=== PATIENT | female | born 1970 | race Caucasian/White ===

== ENCOUNTER 2024-03-19 18:41 | Emergency (ER) | payer OTHER ==
[2024-03-19 18:50] VITALS: BMI 24.3
[2024-03-19] MEDS ORDERED: ACETAMINOPHEN INJECTION 100 ML IVPB ONE (20:03)
[2024-03-19] MEDS ORDERED: ONDANSETRON 4 MG/2 ML VIAL ONE (20:03)
[2024-03-19] MEDS: ACETAMINOPHEN 1000 MG/100 ML BAG IVPB ONE (20:27)
[2024-03-19] MEDS: LACTATED RINGERS SOLUTION 1000 ML INFUS.BAG IV ONE (20:27)
[2024-03-19] MEDS: ONDANSETRON 4 MG/2 ML VIAL IVPUSH ONE (20:27)
[2024-03-19 20:59] LABS: BASO % 0.1 % (0-2.0); EOS % 0.3 % (0-4.5); HEMATOCRIT 38.9 % (32.4-45.2); HEMOGLOBIN 13.3 GM/dL (10.7-15.3); LYMPH % 10.4 % (8-40); MCH 30.2 pg (25.7-33.7); MCHC 34.1 g/dl (32.0-36.0); MEAN CELL VOLUME 88.7 fl (80-96); MEAN PLT VOLUME 6.9 fl (7.5-11.1); MONO % 7.1 % (3.8-10.2); NEUT % 82.1 % (42.8-82.8); PLATELET COUNT 207 10^3/uL (134-434); RBC 4.39 M/mm3 (3.60-5.2); RDW 14.5 % (11.6-15.6); WHITE BLOOD COUNT 5.1 K/mm3 (4.0-10.0)
[2024-03-19 21:20] LABS: POTASSIUM 4.2 mmol/L (3.5-5.1)
[2024-03-19 21:22] LABS: ALBUMIN 4.1 g/dl (3.4-5.0); BLOOD UREA NITROGEN 19.5 mg/dL (7-18); CALCIUM 9.4 mg/dL (8.5-10.1); MAGNESIUM 1.7 mg/dL (1.8-2.4)
[2024-03-19 21:25] LABS: CREATININE 1.1 mg/dL (0.55-1.3)
[2024-03-19 21:27] LABS: BILIRUBIN,TOTAL 0.3 mg/dL (0.2-1)
[2024-03-19] MEDS ORDERED: KETOROLAC TROMETHAMINE 15 MG/ML VIAL ONE (21:32)
[2024-03-19] MEDS ORDERED: MAGNESIUM SULFATE IN WATER 2 GM/50 ML IVPB IVPB ONE (21:33)
[2024-03-19] MEDS: MAGNESIUM SULFATE IN WATER 2 GM/50 ML IVPB IVPB ONE (21:41)
[2024-03-19] MEDS: KETOROLAC TROMETHAMINE 15 MG/ML VIAL IVPUSH ONE (21:41)
[2024-03-19] MEDS ORDERED: METOCLOPRAMIDE HCL INJECTION 10 MG/2 ML VIAL ONE (22:30)
[2024-03-19] MEDS: METOCLOPRAMIDE HCL INJECTION 10 MG/2 ML VIAL IVPB ONE (22:34)
[2024-03-19 22:43] LABS: EPI CELLS 5 /uL (0-25.1); HYALINE CASTS 0 /uL (0-3.1); PH,URINE 5.5 (5.0-8.0); URINE APPEARANCE CLEAR; URINE BACTERIA 27 /uL (0-1359); URINE BILIRUBIN NEGATIVE (NEGATIVE); URINE COLOR YELLOW; URINE GLUCOSE (UA) NEGATIVE (NEGATIVE); URINE KETONE NEGATIVE (NEGATIVE); URINE LEUK ESTERASE NEGATIVE (NEGATIVE); URINE NITRITE NEGATIVE (NEGATIVE); URINE PROTEIN NEGATIVE (NEGATIVE); URINE RBC 6 /uL (0-23.9); URINE UROBILINOGEN 0.2 mg/dL (0.2-1.0); URINE WBC 7 /uL (0-25.8)
[2024-03-20] MEDS ORDERED: ACETAMINOPHEN 325 MG TABLET (FP) ONE (01:39)
[2024-03-20] MEDS ORDERED: KETOROLAC TROMETHAMINE 15 MG/ML VIAL ONE (01:39)
[2024-03-20] MEDS: KETOROLAC TROMETHAMINE 15 MG/ML VIAL IVPUSH ONE (01:47)
[2024-03-20] MEDS: ACETAMINOPHEN 325 MG TABLET (FP) PO ONE (01:47)
[2024-03-20 02:01] VITALS: BP 126/76; PULSE 104; RESP 19; TEMP 99.8
[2024-03-20] MEDS ORDERED: metroNIDAZOLE 500 MG TABLET PO ONE (02:25)
[2024-03-20] MEDS ORDERED: metroNIDAZOLE 250 MG TABLET ONE (02:38)
== END 2024-03-20 02:50 | disposition home or self-care (01) ==
LOC: JER 18:41
PROC: 3E033GC Introduction of Other Therapeutic Substance into Peripheral Vein, Percutaneous Approach (ICD-10-PCS; principal; 2024-03-19)
PROC: 3E033NZ Introduction of Analgesics, Hypnotics, Sedatives into Peripheral Vein, Percutaneous Approach (ICD-10-PCS; 2024-03-19)
PROC: 3E0333Z Introduction of Anti-inflammatory into Peripheral Vein, Percutaneous Approach (ICD-10-PCS; 2024-03-19)
PROC: 3E033GC Introduction of Other Therapeutic Substance into Peripheral Vein, Percutaneous Approach (ICD-10-PCS; 2024-03-19)
PROC: 3E033GC Introduction of Other Therapeutic Substance into Peripheral Vein, Percutaneous Approach (ICD-10-PCS; 2024-03-19)
PROC: 3E0333Z Introduction of Anti-inflammatory into Peripheral Vein, Percutaneous Approach (ICD-10-PCS; 2024-03-20)
DX: R19.7 Diarrhea, unspecified (principal); R10.84 Generalized abdominal pain; R50.9 Fever, unspecified; M79.10 Myalgia, unspecified site; M54.9 Dorsalgia, unspecified; R11.0 Nausea; Z20.822 Contact with and (suspected) exposure to COVID-19
CPT/HCPCS: 0241U-QW; 36415; 74177-TC; 80053; 81003; 83605; 83690; 83735; 84703; 85025; 87040; 87086; 99285-25; J0131; Q9967